=== PATIENT | male | born 1950 | race Caucasian/White ===

== ENCOUNTER → 2017-01-22 | Day surgery (SDC) | payer MEDICARE ==
[~2017-01-22] VITALS: Ht 193 cm; Wt 93.0 kg
[~2017-01-22] MED LIST: ACET10SO3 NEB; ACETAMINOPHEN/CODEINE 300 MG/30 MG TAB ONE; ACETAMINOPHEN/CODEINE 300 MG/30 MG TAB PO PRN; ARAN200I2 SQ; ASPI1TAB69 PO; BUPIVACAINE/EPINEPHRINE 0.5% PF 30 ML VIAL ONE; CHLORHEXIDINE GLUCONATE 2 % 1 PACK (2 CLOTHS) TOPICAL PRN; DRON2.5 PO; FAMOTIDINE 20 MG/2 ML VIAL ONE; FOLI1TAB4 PO; HEPARIN SODIUM - IV 10,000 UNITS/10 ML VIAL ONE; HEPARIN SODIUM - SQ 10,000 UNITS/ML VIAL ONE; Hemodialysis Vas Acc Cath PRN Heparin 1000 unit/ml Flush IV FLUSH; Hemodialysis Vas Access Cath PRN NS Lock Flush IV FLUSH; INSULIN HUMAN REGULAR 1,000 UNITS/10 ML VIAL SQ PRN; IPRASOL INH; KETAMINE HCL 500 MG/5 ML VIAL ONE; LACTATED RINGER'S 1000 ML IV PRN; LORA-392 PO; METOPROLOL TARTRATE 25 MG TAB PO PRN; MIDAZOLAM HCL 2 MG/2 ML VIAL ONE; MORPHINE SULFATE 4 MG/ML INJ ONE; NOVORP2 SQ; OXYC-395 PO; PAXI10TA2 PO; POVIDONE IODINE 5% (ANTISEPSIS KIT) 4 APPLICATIONS EACH NARE PRN; PRED10 PO; PROP10TA6 PO; PROPOFOL 200 MG/20 ML AMP IV ONE; PYRI100T4 PO; RANI150T PO; REME30TA PO; SENN8.6C PO; SIRO2 PO; SODIUM CHLORID 0.9% 500 ML INJ 500 ML IV ONE; SODIUM CHLORID 0.9% 500 ML IV PRN; TYLE325T PO; VITA100T54 PO; ZOFR4TAB PO; ceFAZolin 1,000 MG/NS 100 ML IV SCH
[2017-01-22 07:12] VITALS: BP 136/88; PULSE 103; RESP 18; TEMP 98.5; O2SAT 96
[2017-01-22 07:23] LABS: HEMATOCRIT 27.2 % (39.0-51.0); MEAN CELL VOLUME 89.3 FL (80.0-100.0); MEAN CORPUSCULAR HEMOGLOBIN 29.8 PG (27.0-34.0); MEAN CORPUSCULAR HGB CONC 33.4 % (32.0-36.0); PLATELET COUNT 94 TH/MM3 (150-450); RED BLOOD COUNT 3.04 MIL/MM3 (4.50-5.90); RED CELL DISTRIBUTION WIDTH 19.3 % (11.6-17.2); WHITE BLOOD COUNT 6.9 TH/MM3 (4.0-11.0)
[2017-01-22 07:33] LABS: HEMO FLAGS AUTO DIFF
[2017-01-22 07:36] LABS: BICARBONATE 26.7 MEQ/L (21.0-32.0); POTASSIUM 4.4 MEQ/L (3.5-5.1)
[2017-01-22 08:30] LABS: BANDS 8 % (0-6); BASOPHILS 1 % (0-2); EOSINOPHILS 1 % (0-4); METAMYELOCYTES 2 % (0-1); MYELOCYTES 4 % (0-0); NEUTROPHIL # MANUAL DIFF 5.3 TH/MM3 (1.8-7.7); POLYS (SEG NEUTROPHILS) 63 % (16-70); WBC DIFF SAMPLE 100
[2017-01-22 08:31] LABS: PLATELET ESTIMATE SMEAR LOW (NORMAL); PLATELET MORPHOLOGY NORMAL (NORMAL); SCAN/DIFF FINAL DIFF MANUAL
[2017-01-22 11:27] VITALS: BP 142/84; PULSE 121; RESP 20; TEMP 98; O2SAT 96
--- NOTE | 2017-01-22 15:26 | EKG ---
Date Performed: 01/22/2017 Time Performed: 07:02:34 PTAGE: 66 years EKG: SINUS TACHYCARDIA ABNORMAL RHYTHM ECG NO PREVIOUS TRACING DOCTOR: Arun Aguilar Interpretating Date/Time 01/22/2017 15:23:37
--- NOTE | 2017-01-24 10:58 | MP ---
cc: SIMI MOE M.D. DATE OF SURGERY 01/22/2017 PREOPERATIVE DIAGNOSIS Chronic kidney disease - needs permanent hemodialysis access. POSTOPERATIVE DIAGNOSIS Chronic kidney disease - needs permanent hemodialysis access. OPERATIVE PROCEDURE Right brachial basilic AV fistula creation. SURGEON Simi Moe MD DEHYDROGENATION OPERATOR HEAD ERIC [place] ANESTHESIA Local MAC DESCRIPTION OF PROCEDURE With the patient in the supine position and under IV sedation, the right arm was prepped with Betadine and draped in a sterile fashion. Appropriate prophylactic antibiotic was administered intravenously and following a protocol time-out, the skin and subcutaneous tissue along the medial supra-antecubital region infiltrated with 0.5% Marcaine with epinephrine. A curvilinear 3 cm incision was performed along the medial supra-antecubital region through which the basilic vein and brachial artery were circumferentially mobilized. The basilic vein was ligated distally with 4-0 silk, transected proximal to the ligature, spatulated on end, flushed with heparinized saline and occluded with a Yasargil clip. The brachial artery was occluded proximally and distally with Yasargil clips. A vertical 4-mm arteriotomy was performed along the anteromedial surface. The arterial lumen was flushed proximally and distally with heparinized saline. An end-to-side anastomosis was accomplished between the vein and arteriotomy with continuous 7-0 Prolene. The occluding Yasargil clips were then removed reestablishing pulsatile flow within the brachial artery as well as into the basilic vein. Strict hemostasis and normal perfusion within the right hand were assured. The incision was closed with interrupted subcutaneous 4-0 Monocryl, continuous subcuticular 5-0 Monocryl. Reinforced with Steri-Strips and covered with a sterile gauze. The instrument, needle, sponge count were correct x2. There were no operative complications. The patient returned to the recovery room in stable condition having tolerated the procedure well. MD RAFAL Bundy/PAT /4:47 PM /10:52 AM
== END | disposition home or self-care (01) ==
LOC: HSDC 06:06
PROVIDERS: ATTEND Surgery Vascular Surgery
DX: N18.6 End stage renal disease (principal); I12.9 Hypertensive chronic kidney disease with stage 1 through stage 4 chronic kidney disease, or unspecified chronic kidney disease; E11.9 Type 2 diabetes mellitus without complications
CPT/HCPCS: 01844; 36819; 80048; 85007; 85027; 93005; J0690; J1644; J2250; J2270; J7040; J7120